=== PATIENT | male | born 1950 | race Asian ===

== ENCOUNTER 2018-04-23 18:47 | Inpatient (IN) | payer OTHER ==
[~2018-04-23] VITALS: Ht 167.6 cm; Wt 64.0 kg
[2018-04-23 18:54] VITALS: Ht 167.6 cm; Wt 64.0 kg
[2018-04-23 20:03] LABS: PLATELET COUNT 200 x10^3mcL (130-400); RED CELL DISTRIBUTION WIDTH 14.1 % (11.5-14.5)
[2018-04-23 20:05] LABS: BASOPHIL % 0 % (0-2)
[2018-04-23 20:13] LABS: CALCIUM 9.2 mg/dL (8.5-10.1); CARBON DIOXIDE 26.5 mmol/L (21-32); CHLORIDE SERUM 94 mmol/L (98-107); CREATININE SERUM 1.2 mg/dL (0.7-1.3); GFR1 > 60 mL/min; GLUCOSE SERUM 126 mg/dL (74-106); POTASSIUM SERUM 4.2 mmol/L (3.5-5.1); SODIUM SERUM 128 mmol/L (136-145)
[2018-04-23 20:18] LABS: ALBUMIN 3.7 g/dL (3.4-5.0); ALKALINE PHOSPHATASE 64 U/L (46-116); ALT/SGPT 24 U/L (16-63); AMYLASE 89 U/L (25-115); AST/SGOT 19 U/L (15-37); BILIRUBIN TOTAL 1.4 mg/dL (0.20-1.00); LIPASE 109 IU/L (73-393); TOTAL PROTEIN, SERUM 7.6 g/dL (6.4-8.2)
[2018-04-23 21:32] LABS: T3 TOTAL 1.15 ng/mL
[2018-04-23 21:47] LABS: CHOLESTEROL/HDL RATIO 2.9; MAGNESIUM 1.9 mg/dL (1.8-2.4); PHOSPHOROUS 4.6 mg/dL (2.5-4.9)
[2018-04-23 22:12] LABS: FREE T4 1.44 ng/dL (0.76-1.46); FREE THYROXINE INDEX 4.3 ug/dL (1.4-4.5); T4(THYROXINE) 11.4 ug/dL (4.7-13.3)
[2018-04-23 22:28] VITALS: BP 130/57
[2018-04-23 23:45] VITALS: BP 120/72
[2018-04-24 00:45] VITALS: BP 122/74
[2018-04-24 01:38] LABS: microscopic required? NO
[2018-04-24 01:55] LABS: urine erythrocyte NEGATIVE (NEGATIVE)
[2018-04-24 02:07] LABS: AMPHETAMINE QUAL UR NONE DETECTED (See below)
[2018-04-24 06:27] LABS: CARBON DIOXIDE 25.3 mmol/L (21-32); CREATININE SERUM 1.3 mg/dL (0.7-1.3); POTASSIUM SERUM 3.9 mmol/L (3.5-5.1)
[2018-04-24 06:34] VITALS: BP 97/60
[2018-04-24 07:06] LABS: PLATELET COUNT 178 x10^3mcL (130-400); RED CELL DISTRIBUTION WIDTH 13.4 % (11.5-14.5)
[2018-04-24 07:22] LABS: BASOPHIL % 0 % (0-2)
[2018-04-24 10:03] VITALS: BP 102/55
[2018-04-24 16:30] VITALS: BP 112/59
[2018-04-24 20:37] VITALS: BP 116/51
[2018-04-25 05:22] VITALS: BP 107/55
[2018-04-25 06:44] LABS: CALCIUM 8.6 mg/dL (8.5-10.1); CARBON DIOXIDE 24.1 mmol/L (21-32); CREATININE SERUM 1.5 mg/dL (0.7-1.3); MAGNESIUM 1.8 mg/dL (1.8-2.4); PHOSPHOROUS 2.7 mg/dL (2.5-4.9); POTASSIUM SERUM 3.8 mmol/L (3.5-5.1)
[2018-04-25 08:21] VITALS: BP 116/55
[2018-04-25 09:10] LABS: BASOPHIL % 0.2 % (0-2); PLATELET COUNT 200 x10^3mcL (130-400); RED CELL DISTRIBUTION WIDTH 15.4 % (11.5-14.5)
[2018-04-25 14:10] VITALS: BP 116/55
[2018-04-25 18:22] VITALS: BP 116/55
== END 2018-04-25 19:12 | disposition home or self-care (01) | DRG 234 ==
LOC: ED 18:47 → MU 20:59
PROVIDERS: Emergency Medicine; Internal Medicine; Surgery
PROC: 0DTJ4ZZ Resection of Appendix, Percutaneous Endoscopic Approach (ICD-10-PCS; principal; 2018-04-24 08:30)
DX: K35.80 Unspecified acute appendicitis (principal); N17.0 Acute kidney failure with tubular necrosis; E87.2 Acidosis; E87.1 Hypo-osmolality and hyponatremia; E78.5 Hyperlipidemia, unspecified; I10 Essential (primary) hypertension; D63.8 Anemia in other chronic diseases classified elsewhere; Z23 Encounter for immunization; Z79.899 Other long term (current) drug therapy
CPT/HCPCS: 83880; 84439; 90658; 97110-GP; 97116-GP; 97530-GP; J0694; J1170; J1885; J3010; J3490; J7030; Q0092